=== PATIENT | female | born 1965 | race American Indian/Alaskan Native ===

== ENCOUNTER 2021-10-22 14:42 | Emergency (ER) | payer SELFPAY ==
--- NOTE | 2021-10-22 20:45 | Emergency Department Report ---
ED General Adult HPI - General Chief complaint: Abdominal Pain Stated complaint: AB PAIN/COUGH Time Seen by Provider: 10/22/21 20:13 Source: patient Mode of arrival: Ambulatory Limitations: No Limitations - History of Present Illness Initial comments: 55-year-old female with a past medical history of hypertension, hyperlipidemia and peripheral edema presents to the ER today with complaints of cough and abdominal discomfort. Patient states that she has had a productive cough now for the past 6 months. She states that sometimes her cough gets so bad to where she is unable to sleep. She also reports itchy throat, and sneezing. Patient states that she also feels a pulling sensation and some discomfort in her entire abdomen but more so lower abdomen. She states that she has seen her primary care doctor but they cannot figure out the cause of the cough. She has been prescribed Zyrtec, as well as Ventolin but she states that they do not seem to be helping. She reports intermittent wheezing but no shortness of breath, chest pain, nausea, vomiting, UTI symptoms, fever or any additional symptoms at this time. MD Complaint: Cough/abdominal discomfort -: month(s) (6) Severity scale (0 -10): 9 - Related Data Previous Rx's Medication Instructions Recorded Last Taken Type Albuterol Mdi (or & Nicu Only) 2 puff IH QID PRN #8.5 gram 10/22/21 Unknown Rx [ProAir HFA Inhaler] Benzonatate [Tessalon Perles] 100 mg PO Q8HR #30 cap 10/22/21 Unknown Rx Prednisone [predniSONE 5 mg (6-Day 5 mg PO .TAPER #1 10/22/21 Unknown Rx Pack, 21 Tabs)] Allergies Allergy/AdvReac Type Severity Reaction Status Date / Time No Known Allergies Allergy Unverified 10/22/21 16:44 ED Review of Systems ROS: Stated complaint: AB PAIN/COUGH Other details as noted in HPI Comment: All other systems reviewed and negative Constitutional: denies: chills, fever Eyes: denies: eye pain, eye discharge, vision change ENT: other (sneezing). denies: ear pain, throat pain, dental pain, hearing loss, epistaxis, congestion Respiratory: cough, wheezing. denies: shortness of breath, SOB with exertion, SOB at rest, stridor Cardiovascular: denies: chest pain, palpitations, dyspnea on exertion, edema, syncope, paroxysmal nocturnal dyspnea Gastrointestinal: denies: abdominal pain, nausea, vomiting, diarrhea, constipation, hematemesis, hematochezia Genitourinary: denies: urgency, dysuria, hematuria, discharge, abnormal menses, dyspareunia Musculoskeletal: denies: back pain, joint swelling, arthralgia, myalgia Skin: denies: rash, lesions, change in color, change in hair/nails, pruritus Neurological: denies: headache, weakness, numbness, paresthesias, confusion, abnormal gait, vertigo Psychiatric: denies: anxiety, depression, auditory hallucinations, visual hallucinations, homicidal thoughts, suicidal thoughts Hematological/Lymphatic: denies: easy bleeding, easy bruising ED Past Medical Hx - Medications Home Medications: Home Medications Medication Instructions Recorded Confirmed Last Taken Type Albuterol Mdi (or & Nicu Only) 2 puff IH QID PRN #8.5 gram 10/22/21 Unknown Rx [ProAir HFA Inhaler] Benzonatate [Tessalon Perles] 100 mg PO Q8HR #30 cap 10/22/21 Unknown Rx Prednisone [predniSONE 5 mg (6-Day 5 mg PO .TAPER #1 10/22/21 Unknown Rx Pack, 21 Tabs)] ED Physical Exam - General Limitations: No Limitations General appearance: alert, in no apparent distress - Head Head exam: Present: atraumatic, normocephalic, normal inspection - Eye Eye exam: Present: normal appearance, PERRL, EOMI Pupils: Present: normal accommodation - ENT ENT exam: Present: normal exam, mucous membranes moist, TM's normal bilaterally - Neck Neck exam: Present: normal inspection, full ROM. Absent: meningismus - Respiratory Respiratory exam: Present: normal lung sounds bilaterally, wheezes (very mild exp wheezing). Absent: rales, rhonchi, stridor, chest wall tenderness - Cardiovascular Cardiovascular Exam: Present: regular rate, normal rhythm, normal heart sounds - GI/Abdominal GI/Abdominal exam: Present: soft. Absent: distended, tenderness, guarding, rebound - Extremities Exam Extremities exam: Present: normal inspection, full ROM - Neurological Exam Neurological exam: Present: alert, oriented X3, CN II-XII intact, normal gait - Skin Skin exam: Present: intact ED Course Vital Signs 10/22/21 10/22/21 16:48 22:55 Temperature 98.3 F 98.8 F Pulse Rate 64 67 Respiratory 18 20 Rate Blood Pressure 127/79 121/79 [Right] O2 Sat by Pulse 96 100 Oximetry ED Medical Decision Making - Lab Data Result diagrams: 10/22/21 21:15 10/22/21 21:15 Laboratory Results - last 24 hr 10/22/21 10/22/21 10/22/21 21:15 21:15 Unknown WBC 6.3 RBC 4.27 Hgb 13.1 Hct 39.5 MCV 93 MCH 31 MCHC 33 RDW 14.3 Plt Count 361 Lymph % (Auto) 31.5 [place] % (Auto) 8.7 H Eos % (Auto) 2.0 Baso % (Auto) 0.8 Lymph # (Auto) 2.0 [place] # (Auto) 0.6 Eos # (Auto) 0.1 Baso # (Auto) 0.1 Seg Neutrophils % 57.0 Seg Neutrophils # 3.6 Sodium 133 L Potassium 4.2 Chloride 95.0 L Carbon Dioxide 22 Anion Gap 20 BUN 19 H Creatinine 0.6 Estimated GFR > 60 BUN/Creatinine Ratio 32 Glucose 114 H Calcium 9.9 Total Bilirubin 0.20 AST 20 ALT 27 Alkaline Phosphatase 104 Total Protein 7.9 Albumin 4.4 Albumin/Globulin Ratio 1.3 Urine Color Yellow Urine Turbidity Clear Urine pH 6.0 Ur Specific [place] 1.020 Urine Protein <15 mg/dl Urine Glucose (UA) Neg Urine Ketones Neg Urine Blood Neg Urine Nitrite Neg Urine Bilirubin Neg Urine Urobilinogen < 2.0 Ur Leukocyte Esterase Tr Urine WBC (Auto) 12.0 H Urine RBC (Auto) 1.0 U Epithel Cells (Auto) 16.0 H Urine Bacteria (Auto) 1+ Urine Mucus Few - Radiology Data Radiology results: report reviewed Patient: DORYS RATLIFF MR#: [id number] 11 : 1965 Acct:[id number] Age/Sex: 55 / F ADM Date: 10/22/21 Loc: ED Attending Dr: Ordering Physician: JOSE G WORTHY Date of Service: 10/22/21 Procedure(s): XR chest routine 2V Accession Number(s): [id number] cc: JOSE G WORTHY Fluoro Time In Minutes: CHEST 2 VIEWS, 10/22/2021 INDICATION: Cough for 6 months. COMPARISON: None FINDINGS: Support devices: None. Heart: The cardiac silhouette is normal in size. Lungs/pleura: The lungs are clear of focal airspace disease, significant pleural effusion or pneumothorax. Additional findings: No significant acute abnormality. IMPRESSION: 1. No evidence of acute cardiopulmonary process. Signer Name: Lachelle Eagle MD Signed: 10/22/2021 9:05 PM Workstation Name: [id number] Transcribed By: EB Dictated By: Lachelle Eagle MD Electronically Authenticated By: Lachelle Eagle MD Signed Date/Time: 10/22/212104 DD/ 03 TD/TT: - Medical Decision Making 55-year-old female with a past medical history of hypertension, hyperlipidemia and peripheral edema presents to the ER today with complaints of cough and abdominal discomfort. Patient states that she has had a productive cough now for the past 6 months. She states that sometimes her cough gets so bad to where she is unable to sleep. She also reports itchy throat, and sneezing. Patient states that she also feels a pulling sensation and some discomfort in her entire abdomen but more so lower abdomen. She states that she has seen her primary care doctor but they cannot figure out the cause of the cough. She has been prescribed Zyrtec, as well as Ventolin but she states that they do not seem to be helping. She reports intermittent wheezing but no shortness of breath, chest pain, nausea, vomiting, UTI symptoms, fever or any additional symptoms at this time. 2357: All labs reviewed and unremarkable. Chest x-ray shows nothing acute. Patient is not toxic not ill-appearing and she is not in any significant pain or respiratory distress. Abdomen was soft and nontender. She is well-hydrated. She is neurologically intact with a normal gait. Patient cough is chronic, and her abdominal discomfort is likely from abdominal strain from the cough. At this time there is no indication for any additional testing. Discussed all results with patient. Informed her she should follow-up with her PCP for referral to academic vice president and her final inspector. She will be given some medications to help her symptoms. Patient expressed understanding agree with plan. Patient was stable at time of discharge. Critical care attestation.: If time is entered above; I have spent that time in minutes in the direct care of this critically ill patient, excluding procedure time. ED Disposition Clinical Impression: Chronic cough, Abdominal discomfort Disposition: 01 HOME / SELF CARE / HOMELESS Is pt being admited?: No Does the pt Need Aspirin: No Condition: Stable Instructions: Abdominal Pain, Adult, Cough, Adult, Abdominal Pain (ED) Additional Instructions: I recommend I take the Tessalon Perles and the prednisone pack as prescribed to help with your cough. I would recommend using the albuterol MDI and continuing her Zyrtec. Follow-up with your primary care doctor for referral to an academic vice president or ENT and or GI specialist if you continue to have abdominal pain. Return to the ER if your symptoms changes or worsens in any way. Prescriptions: Prednisone [predniSONE 5 mg (6-Day Pack, 21 Tabs)] 5 mg PO .TAPER #1 Albuterol Mdi (or & Nicu Only) [ProAir HFA Inhaler] 2 puff IH QID PRN #8.5 gram PRN Reason: Shortness Of Breath Benzonatate [Tessalon Perles] 100 mg PO Q8HR #30 cap Referrals: CASIMIRO SALAZAR MD [Primary Care Provider] - 3-5 Days Forms: Work/School Release Form(ED) Time of Disposition: 22:48
--- NOTE | 2021-10-22 21:09 | XRay Report ---
CHEST 2 VIEWS, 10/22/2021 INDICATION: Cough for 6 months. COMPARISON: None FINDINGS: Support devices: None. Heart: The cardiac silhouette is normal in size. Lungs/pleura: The lungs are clear of focal airspace disease, significant pleural effusion or pneumoth orax. Additional findings: No significant acute abnormality. IMPRESSION: 1. No evidence of acute cardiopulmonary process. Signer Name: Lachelle Eagle MD Signed: 10/22/2021 9:05 PM Workstation Name: [id number]
[2021-10-22 21:54] LABS: Basophils # (Auto) 0.1 K/mm3 (0.0-0.1); Basophils % (Auto) 0.8 % (0.0-1.8); Eosinophils # (Auto) 0.1 K/mm3 (0.0-0.4); Hematocrit 39.5 % (30.3-42.9); Hemoglobin 13.1 gm/dl (10.1-14.3); Lymphocytes % (Auto) 31.5 % (13.4-35.0); Mean Corpuscular HGB Conc 33 % (30-34); Mean Corpuscular Volume 93 fl (79-97); Monocytes # (Auto) 0.6 K/mm3 (0.0-0.8); Monocytes % (Auto) 8.7 % (0.0-7.3); Platelet Count 361 K/mm3 (140-440); Red Blood Count 4.27 M/mm3 (3.65-5.03); Red Cell Distribution Width 14.3 % (13.2-15.2)
[2021-10-22 21:55] LABS: Alanine Aminotransferase 27 units/L (7-56); Albumin 4.4 g/dL (3.9-5); Blood Urea Nitrogen 19 mg/dL (7-17); Calcium 9.9 mg/dL (8.4-10.2); Hemolysis Index 57
[2021-10-22 21:58] LABS: BUN/Creatinine Ratio 32
[2021-10-22 22:23] LABS: Bacteria,Urine 1+ /HPF (Negative); Bilirubin,Urine NEG (Negative); Blood,Urine NEG (Negative); Color,Urine Yellow (Yellow); Mucus,Urine FEW /HPF; Protein,Urine <15 mg/dL mg/dL (Negative); Urobilinogen,Urine < 2.0 mg/dL (<2.0)
[2021-10-22 22:56] VITALS: BP 121/79
== END 2021-10-22 22:55 | disposition home or self-care (01) ==
LOC: ED 14:42
DX: R10.9 Unspecified abdominal pain (principal); G89.29 Other chronic pain; I10 Essential (primary) hypertension; R05.9 Cough, unspecified; R10.84 Generalized abdominal pain; Z79.899 Other long term (current) drug therapy
CPT/HCPCS: 36415; 71046; 80053; 81001; 85025; 87086; 99283